=== PATIENT | female | born 1950 | race Caucasian/White ===

== ENCOUNTER → 2022-03-06 09:29 | Outpatient (CLI) | payer MEDICARE, BC, SELFPAY ==
--- NOTE | 2022-03-06 | DI.CT.S_ITS ---
PROCEDURE: CT SHOULDER RIGHT WITHOUT CON INDICATIONS: OSTEOARTHRITIS RIGHT SHOULDER TECHNIQUE: Noncontrast 1-1.5 mm thick sections acquired from the acromioclavicular joint to the inferior scapula using Lupron in shoulder protocol, with coronal and sagittal reformatting. COMPARISON: None. FINDINGS: Image quality: Excellent. Bones: Moderate glenohumeral joint osteoarthritic changes are seen with significant narrowing of the joint space, extensive subchondral sclerosis and inferior marginal osteophyte formation. Moderate acromioclavicular joint osteoarthritic changes also seen with joint space narrowing, subchondral sclerosis and downward osteophyte formation depressing the musculotendinous junction of supraspinatus. There is no shoulder fracture or dislocation. No suspicious intraosseous lesion. Visualized right upper ribs are intact. Soft tissues: There is no gross full-thickness rotator cuff tendon rupture. No significant muscle atrophy is seen. There is no significant joint effusion or calcified intra-articular loose bodies. No abnormal soft tissue calcifications. There is no axillary lymphadenopathy. Visualized right upper lung field is clear. Surgical clips are noted in right axilla. IMPRESSION: 1. Moderate glenohumeral joint osteoarthritis and moderate acromioclavicular joint osteoarthritis. No fracture or dislocation. No suspicious bony lesions. 2. No gross full-thickness rotator cuff tendon rupture. No significant muscle atrophy. No abnormal soft tissue calcifications. Surgical clips seen in right axilla. No axillary lymphadenopathy. Dictated by: Jaquan Tabor M.D. on 03/06/2022 at 11:42 Approved by: Jaqaun Tabor M.D. on 03/06/2022 at 11:45
== END ==
PROVIDERS: PCP Family Medicine; Referring Provider Orthopaedic Surgery; Visit Provider Orthopaedic Surgery
DX: M19.011 Primary osteoarthritis, right shoulder (principal)
CPT/HCPCS: 73200

== ENCOUNTER → 2022-05-01 11:24 | Outpatient (CLI) | payer MEDICARE, BC, SELFPAY ==
[2022-05-01 12:16] LABS: COVID19 -Nasal RAPID Negative (Negative)
== END ==
PROVIDERS: PCP Family Medicine; Referring Provider Orthopaedic Surgery; Visit Provider Orthopaedic Surgery
DX: Z20.822 Contact with and (suspected) exposure to COVID-19 (principal)
CPT/HCPCS: 87635; C9803

== ENCOUNTER 2022-05-04 13:30 | Observation (INO) | payer MEDICARE, BC, SELFPAY ==
[2022-04-15 09:55] VITALS: BMI 37.8
[2022-05-03] VITALS (16 sets, daily range): BP systolic 103–151; BP diastolic 55–74; PULSE 59–127; RESP 16–30; TEMP 35.5–36.7; O2SAT 91–98; BMI 37.8
--- NOTE | 2022-05-03 06:00 | DI.RAD.S_ITS ---
PROCEDURE: XR SHOULDER RT MIN 2V INDICATIONS: TSA TECHNIQUE: 2 views of the shoulder were acquired. COMPARISON: None. FINDINGS: Bones: Expected appearance of reverse shoulder arthroplasty. Acromioclavicular degenerative changes. Soft tissues: Axillary clips. Chest findings are separately reported. IMPRESSION: Expected appearance of right reverse shoulder arthroplasty. Dictated by: Chintan Talley M.D. on 05/03/2022 at 16:45 Approved by: Chintan Talley M.D. on 05/03/2022 at 16:46
[2022-05-03] MEDS: LACTATED RINGERS 1,000 ML 42 ML IV ×3 (12:30→16:09)
--- NOTE | 2022-05-03 13:00 | PM.PREOP ---
Pre-operative Note Interval Note History & Physical reviewed/Exam performed by Physician: Yes Changes to H&P: No
[2022-05-03] MEDS: CEFAZOLIN 2 GM/100 ML PREMIX 100 ML IV (13:50)
[2022-05-03] MEDS: TRANEXAMIC ACID 1,000 MG VIAL 2000 MG INJ (13:55)
[2022-05-03] MEDS: BUPIVACAINE 0.5% W/ EPI (PF) 30 ML VIAL INJ (14:37)
--- NOTE | 2022-05-03 14:43 | SUR.OPER ---
Beach chair with Skytron shoulder positioner. Lower body on padded OR bed. Head in foam padded head cradle, secured with straps. Non-operative arm secured <90 degrees abduction supported with gel pads, 2 Pillows under knees. Hells floated. Safety belt at thigh. Cloth tape over blanket over lower legs.
--- NOTE | 2022-05-03 16:09 | PM.OP.1 ---
Operative Date/Time/Diagnoses Date of procedure: 05/03/22 Time of procedure: 16:09 Pre-op diagnosis: Right shoulder rotator cuff arthropathy Post-op diagnosis: same Procedure & Clinicians Procedure: Right shoulder reverse total shoulder arthroplasty Same procedure as scheduled: Yes Indications: This is a 72-year-old female who has rotator cuff arthropathy. She has had symptoms for years, insidious onset. She has failed conservative therapy including injections, physical therapy, anti-inflammatories and activity modification. After extensive discussion in clinic, she wished to go forward with surgery. Risks and benefits were described including the risk of infection, bleeding, damage to internal structures including nerves. We also discussed the risk of failure of surgery and the need for revision surgery as well as the risk of anesthesia. She expressed understanding with these risks and wished to go forward with surgery. Surgeon: Crsitian Choe Grinder Operator Surface Tool: Graciela Alonso Anesthesia Type: General and Peripheral nerve block Operative Notes Findings: Rotator cuff arthropathy as seen on imaging and under direct visualization essentially non functional subscapularis Closure Type: primary Specimen(s): none sent Prosthetic devices, grafts, tissues, transplants, or devices: Tornier reverse total shoulder system: 25 mm full wedge perform base plate 36 mm standard glenosphere 36 mm (C) 7.5? +6 mm poly High offset (3.5 mm) +0 tray 3A (127.5?) standard PTC flex stem Estimated Blood Loss (mL): 50 Blood products transfused: none Procedure in detail: Operative note: Patient was seen in the preoperative holding unit. The correct right shoulder was identified and marked with my initials. Again we discussed the risks and benefits of surgery and they wished to go forward with surgery. The patient was brought back to the operating room and placed supine on the operating table. He underwent smooth endotracheal intubation. All prominences were padded and they were placed into the beach chair position. Intravenous antibiotics were given. The right shoulder was then prepped with the standard sterile preparation and draping. A time-out was then performed in my initials were again identified on the correct shoulder. 1 g of IV tranexamic acid was given. A standard deltopectoral incision was made. Skin flaps were made. The cephalic vein was identified and retracted laterally. This was protected throughout the remainder of the case. Sharp dissection was made along the deltoid, subacromial and subcoracoid space to release adhesions. The conjoined tendon was identified and the axillary nerve was palpated and continuous using the tug test. It was protected throughout the remainder of the case. A brown retractor was placed underneath the deltoid muscle and a darach retractor underneath the conjoint tendon. The anterior circumflex artery and associated veins on the lower border of the subscapularis were identified and tied off using 0-Vicryl. The biceps tendon was identified in the bicipital groove. This was released from its sheath, and taken from its origin on the glenoid and tied into the pectoralis tendon for a solid tenodesis. We then began a subscapularis peel. The subscapularis was tagged with an Ethibond suture. A 360 degree circumferential release of the subscapularis was performed with protection of the axillary nerve. The coracohumeral ligament was released at the base of the coracoid. The coracoacromial ligament was left intact. The shoulder was then dislocated. Osteophytes were removed using combination of rongeur and osteotome. The rotator cuff was noted to be insufficient. An intramedullary guide was used set at version of 30?. Using an oscillating saw a conservative humeral head cut was made. Impaction reamers were reamed up to a size 3 stem set at angle ?A (127.5?). A neck protector was placed. Attention was then turned to the glenoid. After retracting the humeral head posteriorly a circumferential release was performed of the capsule with protection of the axillary nerve. The labrum was then released starting at the biceps anchor and going around the rim a small amount of triceps was released from the inferior glenoid. A center guide pin was then placed using the guide, followed by Reamer. After adequate cartilage was removed the center drill hole was drilled and measured. The base plate was then implanted and screwed into place. The superior drill hole was drilled and filled in a nonlocking fashion, followed by the inferior and anterior holes in locking fashion. A 36 standard glenosphere was then selected and screwed into place onto the base plate. Turning back to the humerus, the humeral head was delivered and trialed with a C 7.5 degree + 6mm poly. The arm was taken through range of motion and this was felt to be stable. The trial was then removed and a dilute Betadine wash was then performed with 1 L of sterile saline. Before placing the final implant, drill holes were made in the bicipital groove for the subscapularis repair, and sutures were passed through the drill holes. The final stem with high offset tray was then impacted into the humerus. The shoulder was then reduced and again brought through range of motion and was felt to be stable. The interval was then closed using 0-Vicryl. The subscapularis was then repaired using a modified racking hitch with niece loupes. The deltopectoral interval was then closed with #2 Ethibond. The skin was closed with 2-0 PDS and marilyn followed by Aquacel dressing. Patient was awoken from anesthesia and brought back to the postoperative recovery unit without issue. They were placed into a sling. Assisting participation: This operation could not have been safely performed (without compromising the technical results or length of the procedure) without the assistance of a skilled orthopedic assistant. The orthopedic assistant was medically necessary for proper positioning, retraction and manipulation of instruments, proper exposure, graft prep, and manipulation of tissue. Complications: none Post-operative Condition: stable Disposition: PACU Plan for aftercare: Postoperative instructions: Sling to remain on for 6 weeks. No external rotation past neutral for 6 weeks. Okay for him to come off her shower. Okay to shower over the Aquacel dressing. If any water gets underneath the dressing, remove the dressing. First postoperative visit in 2 weeks.
--- NOTE | 2022-05-03 17:24 | DI.RAD.S_ITS ---
PROCEDURE: XR CHEST 1V INDICATIONS: difficult extubation, lethargic TECHNIQUE: One view of the chest was acquired. COMPARISON: None. FINDINGS: Surgical changes and devices: Right axillary clips. Right reverse shoulder arthroplasty. ET tube terminates in the distal esophagus. Lungs and pleura: Lung volumes are low. No pleural effusions. Thick linear opacity seen at the right lung base. Mediastinum: Heart size is at the upper limit of normal. Bones and chest wall: No suspicious bony lesions. Overlying soft tissues appear unremarkable. IMPRESSION: Thick linear opacity right lung base, possibly a combination of airspace disease and scar/atelectasis. Consider future imaging surveillance to assess for resolution and underlying neoplasm. ET tube terminates in the lower trachea. Lung volumes are low. Dictated by: Chintan Talley M.D. on 05/03/2022 at 16:44 Approved by: Chintan Talley M.D. on 05/03/2022 at 16:45
[2022-05-03 17:41] LABS: PCO2 ABG 92.5 mmHg (35-45); pH ABG 7.16 (7.35-7.45)
[2022-05-03 17:42] LABS: Fractionated Inspired Oxygen 100; HCO3 ABG 33 mmol/L (22-26); Oxygen Saturation ABG 100 % (95-100); PO2 ABG 357 mmHg (80-100); TCO2 ABG 36 mmol/L (21-31)
--- NOTE | 2022-05-03 19:09 | SUR.PHASEI ---
1800: Pt out of OR with JÚNIOR Brown, pt awake and alert, denying pain. When attached to bedside monitor pt was found to be in afib in the 120-130's HR. Bedside EKG performed and confirmed new on set afib. Hospitalist was consulted and dye house helper notified, pt cleared to go to bed 214 on telemetry monitoring. Pt sustained stable vital signs throughout her time in PACU and denied pain or dizziness. Pt transferred on tele monitor to the floor with two RN's in stable condition and passed off to bedside nurse.
--- NOTE | 2022-05-03 19:34 | DI.RAD.S_ITS ---
PROCEDURE: XR CHEST 1V INDICATIONS: pneumonia? TECHNIQUE: One view of the chest was acquired. COMPARISON: [facility], CR, XR CHEST 1V, 05/03/2022, 17:16. FINDINGS: Surgical changes and devices: None. Lungs and pleura: Lungs are unchanged with a curvilinear area of alveolar consolidation at the right lung base. This has not changed from earlier same day.. No pleural effusions or pneumothorax. Mediastinum: Mediastinal contours appear normal. Heart size is normal. Bones and chest wall: No suspicious bony lesions. Overlying soft tissues appear unremarkable. IMPRESSION: Presumed right lower lobe pneumonia pattern causing curvilinear radiodensity above the right hemidiaphragm. No change from earlier same day. Dictated by: Kyrie Palomino M.D. on 05/03/2022 at 21:52 Approved by: Kyrie Palomino M.D. on 05/03/2022 at 21:54
--- NOTE | 2022-05-03 20:29 | PM.CN ---
History of Present Illness Consult details Date Patient Seen: 05/03/22 Time Patient Seen: 18:30 Chief complaint: OPB Narrative: Ms. Yo is a 72W with PMH asthma, DM who presented for an elective shoulder repair. During surgery she was noted to have thick yellow secretions from the endotracheal tube. She was eventually extubated but was having respiratory difficulty, hypoxemia and placed on nasal cannula. She was tachycardic, EKG showed afib with RVR. She was given IV labetalol. Anesthesia team called requesting consult. When I see her she states prior to surgery she had no cough, shortness of breath, fever/chills. She has no history of cardiac disease, no history of afib. She currently denies feeling chest pain, palpitations, shortness of breath, dizziness, lightheadedness. Meds Home Medications and Allergies Home Medications Medication Instructions Recorded Confirmed Type acetaminophen 500 mg capsule 1,000 mg PO Q6H PRN Pain 04/15/22 05/03/22 History allopurinol 300 mg tablet 300 mg PO DAILY 04/15/22 05/03/22 History amlodipine 5 mg tablet 5 mg PO DAILY 04/15/22 05/03/22 History atorvastatin 40 mg tablet 40 mg PO DAILY 04/15/22 05/03/22 History dapagliflozin 5 mg tablet (Farxiga) 5 mg PO QAM 04/15/22 05/03/22 History esomeprazole magnesium 20 mg 20 mg PO DAILY 04/15/22 05/03/22 History tablet,delayed release loratadine 10 mg tablet 10 mg PO DAILY 04/15/22 05/03/22 History (Allerclear) tiotropium bromide 18 mcg capsule 1 cap inhalation DAILY 04/15/22 05/03/22 History with inhalation device (Spiriva with HandiHaler) Allergies Allergy/AdvReac Type Severity Reaction Status Date / Time Iodinated Contrast Media Allergy Severe Hives Verified 05/03/22 11:22 codeine AdvReac Mild Cough Verified 05/03/22 11:22 Review of Systems Review of Systems Narrative: 14 systems reviewed and negative aside from what is noted in HPI Exam Vital Signs (past 8 hours): - 05/03/22 17:56 05/03/22 18:01 05/03/22 18:06 Temperature 97.4 F L Pulse Rate 125 H 118 H 124 H Respiratory Rate 30 H 27 H 30 H Blood Pressure 118/62 121/74 103/56 L Pulse Oximetry 96 96 96 Oxygen Delivery Method Nasal Cannula Nasal Cannula Nasal Cannula Oxygen Flow Rate 2 2 2 05/03/22 18:11 05/03/22 18:16 05/03/22 18:21 Temperature Pulse Rate 113 H 127 H 122 H Respiratory Rate 21 20 20 Blood Pressure 130/74 105/72 108/73 Pulse Oximetry 92 94 93 Oxygen Delivery Method Nasal Cannula Nasal Cannula Nasal Cannula Oxygen Flow Rate 4 4 4 05/03/22 18:26 05/03/22 18:36 Temperature 96 F L Pulse Rate 123 H 127 H Respiratory Rate 21 16 Blood Pressure 106/67 115/61 Pulse Oximetry 93 94 Oxygen Delivery Method Nasal Cannula Nasal Cannula Oxygen Flow Rate 4 4 Oxygen Delivery Method Nasal Cannula Oxygen Flow Rate 4 Narrative Exam Narrative: GEN: no acute distress HEENT: moist mucous membranes, PERRL NECK: trachea midline, no JVD PULM: clear bilaterally, no wheezes, rhonchi, rales CV: tachycardic, irregular ABD: soft, nontender, nondistended, no organomegaly EXT: warm and well perfused, no edema NEURO: awake, alert, oriented, no focal deficits Objective Labs Labs: Laboratory Results - last 24 hr 05/03/22 17:10 ABG pH 7.16 L* ABG pCO2 92.5 H* ABG pO2 357 H* ABG HCO3 33 H ABG Total CO2 36 H ABG O2 Saturation 100 ABG Base Excess 4.0 H FiO2 100 PFSH Medical History Cade's esophagus Breast cancer, right (1996) Bronchial asthma COPD, mild COVID-19 virus infection (10/2021) Depression Diabetes Easy bruisability Gout Hiatal hernia HLD (hyperlipidemia) HTN (hypertension) LYSNEY on CPAP Osteoarthritis Surgical History History of bilateral tubal ligation History of bladder surgery Hx of bilateral mastectomy (2008) Hx of cholecystectomy Hx of tonsillectomy Social History household members: none Tobacco & Substance Use Smoking Status: Former smoker alcohol intake: former Assessment & Plan Assessment & Plan narrative: 1. Acute hypoxemic respiratory failure -possibly secondary to atelectasis, however sputum concerning for infection -repeat xray now that she is extubated -empiric abx for now with zosyn and azithromycin -repeat ABG -check blood cultures, sputum cultures -check cbc, cmp -check viral panel for respiratory infection 2. Atrial fibrillation with RVR -new diagnosis for patient -rate control with oral metoprolol for now, start at 25mg BID -discuss prior to dc about anticoagulation -check TSH -check ECHO CODE: Full Proxy: Miguel Ángel Whelan, friend I have utilized all available resources to reconcile the patient's home medications Time Spent With Patient Critical Care time: I spent a total of [] minutes of critical care time on this patient's care today; this time is exclusive of procedural time.
[2022-05-03] MEDS: AZITHROMYCIN 500 MG in DEXTROSE 5% IN WATER 250 ML 250 MG IV (20:59)
[2022-05-03] MEDS: DOCUSATE 100 MG CAPSULE PO (21:00)
[2022-05-03] MEDS: METOPROLOL IR 25 MG TABLET PO (21:00)
[2022-05-03] MEDS: IPRATROPIUM 0.5 MG/2.5 ML NEB INH (22:04)
[2022-05-03 22:12] LABS: Hematocrit 40.5 % (36-46); Hemoglobin 12.6 g/dL (12.0-16.0); Mean Corpuscular HGB Conc 31.2 % (30-36); Mean Corpuscular Hemoglobin 29.1 PG (26-34); Mean Corpuscular Volume 93.2 fL (80-100); Platelet Count 196 X10^3/uL (150-400); Red Blood Cell Count 4.34 X10^6/uL (4.0-5.2); Red Cell Distribution Width 13.9 % (11.6-14.8); White Blood Cell Count 14.7 X10^3/uL (4.5-11.0)
[2022-05-03 22:34] LABS: Alanine Aminotransferase 22 IU/L (<35); Albumin 3.7 g/dL (3.5-5.0); Albumin Globulin Ratio 1.1 (1.0-2.8); Alkaline Phosphatase 81 U/L (38-126); Aspartate Aminotransferase 31 IU/L (14-36); BUN Creatinine Ratio 19.2 (6-22); Bilirubin Total 0.5 mg/dL (0.2-1.3); Blood Urea Nitrogen 20 mg/dL (7-17); Calcium 8.8 mg/dL (8.4-10.2); Carbon Dioxide 28 mmol/L (22-32); Chloride 102 mmol/L (98-107); Estimated Glomerular Filt Rate 57 mL/min (>60); Globulin 3.5 g/dL (1.7-4.1); Glucose 186 mg/dL (80-110); HEMOLYSIS < 15 (0-50); Sodium 139 mmol/L (137-145); Total Protein 7.2 g/dL (6.3-8.2)
[2022-05-03] MEDS: PIPERACILLIN/TAZO 3.375 GM in SODIUM CHLORIDE 0.9% 100 ML IV (22:44)
[2022-05-03] MEDS: MORPHINE 2 MG/ML INJ 1.5 MG IV (22:57)
[2022-05-03 23:14] LABS: TSH w/ Reflex to FT4 0.73 uIU/mL (0.47-4.68)
[2022-05-04] VITALS (7 sets, daily range): BP systolic 117–179; BP diastolic 42–71; PULSE 54–61; RESP 15–18; TEMP 35.7–36.4; O2SAT 95–99; BMI 37.8
[2022-05-04] MEDS: MORPHINE 2 MG/ML INJ 1.5 MG IV ×2 (02:21→06:08)
[2022-05-04 04:22] LABS: Hematocrit 37.6 % (36-46); Hemoglobin 12.1 g/dL (12.0-16.0); Mean Corpuscular HGB Conc 32.2 % (30-36); Mean Corpuscular Hemoglobin 29.5 PG (26-34); Mean Corpuscular Volume 91.6 fL (80-100); Platelet Count 186 X10^3/uL (150-400); Red Cell Distribution Width 13.9 % (11.6-14.8); White Blood Cell Count 12.8 X10^3/uL (4.5-11.0)
[2022-05-04] MEDS: PIPERACILLIN/TAZO 3.375 GM in SODIUM CHLORIDE 0.9% 100 ML IV ×2 (04:26→11:00)
[2022-05-04] MEDS: PANTOPRAZOLE DR 40 MG TABLET PO (06:04)
--- NOTE | 2022-05-04 07:29 | P.PN_ITS ---
Subjective Subjective Date Patient Seen: 05/04/22 Time Patient Seen: 07:29 Interval history: Pt sitting up in bed, c/o pain, has no pain medication ordered other than IV morphine. She is also hungry. Pt had imaging and O2 sats consistent w/ pneumonia, being tx'd w/ antibiotics. Blood and sputum cultures pending. Also had new onset afib w/ RVR after surgery; echo pending. Exam Vital Signs (past 8 hours): - 05/04/22 00:54 05/04/22 05:00 Temperature 97.1 F L 97.6 F Pulse Rate 61 60 Respiratory Rate 16 18 Blood Pressure 139/56 L 179/69 H Pulse Oximetry 97 97 Oxygen Flow Rate 4 4 Fraction of Inspired Oxygen 36 SaO2/FiO2 Ratio 272 Oxygen Delivery Method Nasal Cannula Oxygen Flow Rate 4 Narrative Exam Narrative: 5/5 order takers supervisor strength, sensation to touch intact throughout RUE. Aquacel dressing CDI, there is some surrounding distal ecchymosis. Objective Labs Result Diagrams: 05/04/22 04:12 05/03/22 22:04 Labs: Laboratory Results - last 24 hr 05/03/22 05/03/22 05/03/22 17:10 22:04 22:04 WBC 14.7 H RBC 4.34 Hgb 12.6 Hct 40.5 MCV 93.2 MCH 29.1 MCHC 31.2 RDW 13.9 Plt Count 196 ABG pH 7.16 L* ABG pCO2 92.5 H* ABG pO2 357 H* ABG HCO3 33 H ABG Total CO2 36 H ABG O2 Saturation 100 ABG Base Excess 4.0 H FiO2 100 Sodium 139 Potassium 4.0 Chloride 102 Carbon Dioxide 28 BUN 20 H Creatinine 1.04 Estimated GFR 57 L BUN/Creatinine Ratio 19.2 Glucose 186 H Calcium 8.8 Total Bilirubin 0.5 AST 31 ALT 22 Alkaline Phosphatase 81 Total Protein 7.2 Albumin 3.7 Globulin 3.5 Albumin/Globulin Ratio 1.1 TSH 05/03/22 05/04/22 22:04 04:12 WBC 12.8 H RBC 4.10 Hgb 12.1 Hct 37.6 MCV 91.6 MCH 29.5 MCHC 32.2 RDW 13.9 Plt Count 186 ABG pH ABG pCO2 ABG pO2 ABG HCO3 ABG Total CO2 ABG O2 Saturation ABG Base Excess FiO2 Sodium Potassium Chloride Carbon Dioxide BUN Creatinine Estimated GFR BUN/Creatinine Ratio Glucose Calcium Total Bilirubin AST ALT Alkaline Phosphatase Total Protein Albumin Globulin Albumin/Globulin Ratio TSH 0.73 PFSH Medical History Cade's esophagus Breast cancer, right (1996) Bronchial asthma COPD, mild COVID-19 virus infection (10/2021) Depression Diabetes Easy bruisability Gout Hiatal hernia HLD (hyperlipidemia) HTN (hypertension) LYNSEY on CPAP Osteoarthritis Surgical History History of bilateral tubal ligation History of bladder surgery Hx of bilateral mastectomy (2008) Hx of cholecystectomy Hx of tonsillectomy Social History household members: none Smoking Status: Former smoker alcohol intake: former Assessment & Plan Post-op Assessment and plan (1) Status post total shoulder arthroplasty: Assessment and Plan narrative: PO diet ordered. Added hydrocodone/APAP and IBPN for pain. Will change IV morphine to IV hydromorphone q 3 hrs for breakthrough pain. Will order PT/OT for sling and movement training. Sling to remain on for 6 weeks.? No external rotation past neutral for 6 weeks.? Okay to remove sling to shower. Discussed w/ pt that discharge may be today but may be tomorrow given pending tests. (2) Atrial fibrillation with rapid ventricular response: Assessment and Plan narrative: TSH WNL. Echocardiogram pending. Pt on metoprolol for rate control. Appreciate hospitalist help with medical issues. (3) Pneumonia: Assessment and Plan narrative: Presumed RLL pneumonia based on most recent CXR, sputum and blood cultures pending. Postoperative Procedures: Procedures Operation Date: 05/03/22 12:45 Actual Procedure Side Surgeon p Total Shoulder Arthroplasty - Reverse Right Cristian Choe MD Postoperative day: 1
[2022-05-04] MEDS: AMLODIPINE 5 MG TABLET PO (08:37)
[2022-05-04] MEDS: allopurinoL 300 MG TABLET PO (08:38)
[2022-05-04] MEDS: DOCUSATE 100 MG CAPSULE PO ×2 (08:38→20:34)
[2022-05-04] MEDS: ATORVASTATIN 20 MG TABLET 40 MG PO (08:38)
[2022-05-04] MEDS: METOPROLOL IR 25 MG TABLET PO (08:38)
[2022-05-04] MEDS: LORATADINE 10 MG TABLET PO (08:38)
[2022-05-04] MEDS: HYDROCODONE/ACET 5/325 TABLET 1 TAB PO ×3 (08:38→21:08)
--- NOTE | 2022-05-04 09:00 | PT.IIE ---
Current Diagnoses Unspecified atrial fibrillation (05/03/22) Pneumonia, unspecified organism (05/03/22) Other specific arthropathies, not elsewhere classified, right shoulder (05/03/22) Presence of unspecified artificial shoulder joint (05/03/22) Surgery Performed Operation Date: 05/03/22 12:45 Actual Procedures p Total Shoulder Arthroplasty - Reverse (Right) - Cristian Choe MD Surgical History (Last Reviewed 05/03/22 @ 20:35 by Mason Hugo MD) History of bilateral tubal ligation History of bladder surgery Hx of bilateral mastectomy (2008) Hx of cholecystectomy Hx of tonsillectomy Medical History (Last Reviewed 05/03/22 @ 20:35 by Mason Hugo MD) Cade's esophagus Breast cancer, right (1996) Bronchial asthma COPD, mild COVID-19 virus infection (10/2021) Depression Diabetes Easy bruisability Gout Hiatal hernia HLD (hyperlipidemia) HTN (hypertension) LYNSEY on CPAP Osteoarthritis Physical Therapy Inpatient Evaluation/Re-Eval M1 PT/OT-IP Prior Functional Status Start: 05/04/22 11:36 Freq: NEEDED Status: Active Protocol: Document 05/04/22 09:00 AB (Rec: 05/04/22 11:54 AB [email or web address]) Medical Review Prior Functional Status Medical History Reviewed Yes Communication able to make needs known Mobility and Gait pt stated that she is independent with all mobilities and ambulation without AD but occasionally uses her SPC due to arthritis on BLE Social History Household Members none Living Arrangements House Number of Floors (Floors) One Floor Number of Stairs To Enter/Railing? 2 steps without rails to enter the house Home Environment Standard Height Toilet,Walk in Shower Home Equipment Straight Cane,Raised Toilet Seat Without Armrests,Hand Held Shower Additional Social History Comment pt stated that her neighbor/ friend will be able to stay with her for a few days to assist her pt plans to sleep on a recliner M2 PT-IP Current Condition Start: 05/04/22 11:36 Freq: NEEDED Status: Active Protocol: Document 05/04/22 09:00 AB (Rec: 05/04/22 11:54 AB [id number]) Physical Therapy Current Condition Current Condition Evaluation Date 05/04/22 Treatment Diagnosis s/p R TSA reverse; difficulty in walking Onset Date 05/03/22 M3 PT-IP Subjective Start: 05/04/22 11:36 Freq: NEEDED Status: Active Protocol: Document 05/04/22 09:00 AB (Rec: 05/04/22 11:54 AB [id number]) Subjective Physical Therapy Visit Type Type Initial Evaluation Visit Start Time 09:00 Visit Stop Time 09:55 Total Visit Minutes 55 Number of APPLICATION INTERNSHIP Visits 0 Physical Therapy Visit Comments Patient Comments agreeable to do PT Therapy Pain Assessment Pain When Pain Assessed At Rest Pain Present Pain Present Pain Reported Location Right Shoulder Intensity 7 Scale Used Numeric (0 - 10) Pain Management Techniques Apply Cold,Distraction, Modification of Treatment,Re- positioning,Timing of Activity with Medications M4 PT-IP Mobility and Gait Start: 05/04/22 11:36 Freq: NEEDED Status: Active Protocol: Document 05/04/22 09:00 AB (Rec: 05/04/22 11:54 [id number]) PT-Bed Mobility Assessment Supine to Sit Supine to Sit Maximum Assistance PT-Transfer Assessment Sit to and From Stand Sit to and from Stand Contact Guard Assistance,1 Person Assistance,Use of Upper Extremities Equipment Transfer Assistive Device Gait Belt Orthotic/Prosthetic Devices or Brace: Yes Transfers Transfer Destination Chair Transfer Technique Stand Step Pivot Transfer Ability Level of Assist Contact Guard Assistance,1 Person Assistance,Use of Upper Extremities Comments Mobility Comments educated pt on shoulder precautions, pendulum, elbow/ wrist/hand exercises. pt completed supine to sit max A and cues. pt plans to sleep on her recliner at home. completed sit to stand cGA and step transfer to chair CGA . assisted pt with sling adjustment. pt requested to use the toilet. completed sit to stand CGA and ambulated to the toilet using SPC CGA. able to complete toileting SBA . sit to stand from the toilet using grab bar CGA and ambulated towards the sink using SPC CGA. able to maintain standing balance SBA while completing handwashing. pt ambulated in room ~35 ft using SPC CGA. pt sat on chair. educated pt on sling management. completed elbow/ hand/wrist exercises. pt completed up/down step stool using SPC CGA. positioned pt on the chair. call light and table placed within reach. caregiver training set up this afternoon at 1pm. Gait Assessment Gait Gait Assistance Required: Contact Guard Assist Distance (Feet) 35 Able to Maintain Weight Bearing Status Yes During Gait Assistive Devices Assistive Device Gait Belt,Straight Cane Orthotic/Prosthetic Devices or Brace: Yes Gait Deviations General Gait Pattern Antalgic,Step-to Gait Factors Limiting Gait Function Factors Limiting Gait Function Decreased Activity Tolerance, Decreased Strength,Limited Range of Motion,Pain,Poor Balance,Poor Safety Awareness Stair Climbing Assessment Evaluation Level of Assist On Stairs Contact Guard Assistance Devices Stair Climbing Assistive Devices Straight Cane Technique/Endurance Stair Climbing Direction Ascend and Descend Stair Climbing Technique Step to Step Number of Steps Climbed 1 Query Text: Stair Climbing Set # Repetitions (reps) 2 PT-Balance Assessment Sitting Balance and Reactions Static Sitting Balance Ability Normal Dynamic Sitting Balance Ability Normal Standing Balance and Reactions Static Standing Balance Ability Good Dynamic Standing Balance Ability Fair Device Used SPC M5 PT-IP Objective Assessments Start: 05/04/22 11:36 Freq: NEEDED Status: Active Protocol: Document 05/04/22 09:00 AB (Rec: 05/04/22 11:54 AB [email or web address]) Orientation Orientation/Cognition Level of Alertness Alert Orientation Name,Place,Situation Language Function Ability No Deficits Noted Safety Awareness Decreased Safety Awareness Memory Description No Deficits Noted Gross Range of Motion Lower Extremity ROM Assessment Within Functional Limits Strength Lower Extremity Strength Hip 4-/5 Knee 4-/5 Muscle Tone Muscle Tone WNL Yes M6 PT-IP Treatment Start: 05/04/22 11:36 Freq: NEEDED Status: Active Protocol: Document 05/04/22 09:00 AB (Rec: 05/04/22 11:54 AB [email or web address]) Physical Therapy Treatment Education Education Provided Precautions,Weight Bearing Status,Post-Op Packet,Safety M7 PT-IP Assessment and Plan Start: 05/04/22 11:36 Freq: NEEDED Status: Active Protocol: Document 05/04/22 09:00 AB (Rec: 05/04/22 11:54 AB [email or web address]) PT Summary Assessment and Plan Potential Rehabilitation Potential Fair Status of Condition at Evaluation Stable Summary Impairments Pain,ROM,Strength,Balance, Coordination,Sensation,Tone, Cognition,Bed Mobility, Transfers,Gait,Activity Tolerance Assessment Summary pt requiring CGA with mobility using SPC. caregiver training set up this afternoon at 1pm. pt plans to go home and her neighbor/friend will assist her at home. will continue to assess progress. Goals Bed Mobility Goal Independent Transfer Goal Independent,Cane Gait Goal Independent,Cane Gait Distance 100 Other Goals improve transfers, ambulation without AD 150 ft independent up/down 2 steps without rails using SPC I Days to Meet Goals 5 Frequency of Treatment Frequency Of Treatment Twice a Day Treatment Plan Physical Therapy Treatment Plan Bed Mobility Training,Transfer Training,Gait Training, Therapeutic Exercise,Balance Retraining,Post Op Education, Discharge Planning,Hot or Cold Pack,Neuromuscular Re-ed, Coordination Retraining,Manual Therapy Precautions Shoulder Precautions Sling,PROM,Internal Rotation to Body,No External Rotation, No Abduction,Forward Flexion to 90 degrees,Pendulums Weight Bearing Status Weight Bearing Status Non-Weight Bearing Allowed Weight Bearing Amount (enter % RUE NWB or #) (%) Recommendations To Nursing Amount of Assist Needed 1 Person Assist Discharge Recommendations PT Discharge Recommendations Home with Assistance, Outpatient PT Transportation Needs at Discharge Private Vehicle
[2022-05-04 09:17] LABS: Influenza A - CEPHEID Flu A NEGATIVE (NEGATIVE); Influenza B - CEPHEID Flu B NEGATIVE (NEGATIVE); Respiratory Syncytial Virus Negative (Negative)
[2022-05-04 09:41] LABS: COVID-19 CEPHEID 4-PLEX PCR Negative (Negative)
--- NOTE | 2022-05-04 10:34 | CM.DANOTE ---
DCP Assessment: Payor confirmed: Medicare & BCBS PCP confirmed: Adilene Davis MD Pt is a 72 y.o. F who presented to the hospital for a scheduled R total shoulder repair surgery. Pt was found to have pneumonia. Pt brought up to the floor for further management and evaluation of surgical procedure and new onset of illness. DCP met with pt this morning to discuss discharge needs. Pt sitting up in the chair watching TV. DCP introduced self and role. Pt lives alone in a single level house in [place]. Pt is independent at baseline. Pt uses a cane occasionally. Pt still drive POV. Pt states that she is going to be staying with a friend once she is discharged from the hospital and the friend will be picking her up from the hospital. Pt denies any resources at this time. Pt states that she is hoping to get to go home soon. Pt results came back and she is negative for COVID, flu, and RSV. Pt whiteboard updated and instructed to call with any questions. Pt thankful for discussion. P: Once medically stable for discharge, pt to discharge home via friend POV. DCP available if needs arise. Jerica Molina RN/TOYA Discharge Planning/Care Management CM Discharge Assessment Start: 05/04/22 10:33 Freq: Status: Active Protocol: Document 05/04/22 10:33 DANIEL (Rec: 05/04/22 10:34 DANIEL [id number]) Discharge Planning Assessment Assigned Cornice Maker Jerica Molina RN/TOYA Advance Directives? No Advance Directives on File No History Provided By Patient Prior Living Arrangements House Household Members none Type of transporation used prior to Drives own vehicle admit Independent with ADL's Yes Is patient alert and oriented? Yes Caregiver for Another No DME Already Rented / Owned Cane Discharge Plan Home Transportation Arrangement Friend POV Referrals Initiated None needed Whiteboard Updated in Patient Room with Yes name and ext. # of Cornice Maker Comment Instructed to call Review Status In Process Please Provide Date Initial DC 05/04/22 Assessment Was Performed Next Review Type Continued Stay Review Pre-Anesthesia Assessment Start: 04/15/22 09:55 Freq: Status: Active Protocol: Document 04/15/22 09:55 CAB (Rec: 04/15/22 10:45 CAB [id number]) Pre-Anesthesia Assessment Preferred Name Norma Patient Information Reviewed Via Phone Assessment Assessment Completed With Patient Diagnostic Results BMP/CMP,CBC,EKG Comment Outside labs/ECG scanned, COVID screen @ [facility] 05/01/22 Primary Care Provider Imani Seen Specialist in Last 12 Months Yes Specialist Seen Orthopedist Primary Language Czech Round Boner Required No Height 154.94 cm Weight 90.718 kg Body Mass Index (BMI) 37.8 Hearing Ability Normal Visual Assist Glasses Dentition Type Full- Upper & Lower Barriers to Learning None Hx Anesthesia Reactions No Hx Family Anesthesia Reaction No Hx Malignant Hyperthermia No Hx Blood Transfusions No Anesthesia Review Requested No alcohol intake former Smoking Status Former smoker how long ago did patient quit smoking Quit approx 7 years ago Substance Use Type does not use Pain Present Pain Reported Musculoskeletal Symptoms Joint Pain,Limited Range of Motion History of Falling (Recent or History of No ) Patient is completely paralyzed or No completely immobile Prosthesis or Orthotic Device Cane,Front Wheel Walker Mental Status Oriented to own ability Is patient on oxygen? No Does patient have LOZOYA/SOB Yes: Hx COPD, asthma Hx Sleep Apnea Yes CPAP/BIPAP use prescribed used intermittently Will Bring CPAP/BIPAP DOS Yes Currently Taking a Beta Evita No Can You Climb a Flight of Stairs Without No SOB Hx Chest Pain No Hx SOB Yes: Hx COPD, asthma Hx Syncope or Dizziness No Anti-Coagulant Therapy No Has a Radar Systems Engineer No Cardiac Testing No Hx Pacemaker/ICD No Pacemaker Rep Required? No Cardiac Clearance Received Not Applicable Diet Type At Home Regular Dysphagia No Gastrointestinal Symptoms Constipation Urinary Catheter Present No Hx Urinary Self Catheterization No Diabetes Yes HgbA1C 6.4 Date 01/21/22 Patient No Lactating No Hx Drug Resistant Organism No Presence of External or Internal Medical Yes: CPAP Devices Have you had any close contact with No someone diagnosed with COVID-19? Received a COVID vaccine? Yes Received all doses? Yes Marital Status / Lives With none Current Living Arrangements Apartment/Condo Number of Floors (Floors) One Floor Support System Child/Children Does the Patient Have Assistance After Yes: Son will fly in and stay Surgery to assist with care @ [facility] Patient Discharge Plan Description Return Home Comment Pt advised possible same day surgery per surgeon Feels Safe in Current Environment Yes Been Physically Hurt or Threatened By a No Person in Current Environment Do you have thoughts of harming yourself None or others? Are you currently considering suicide? No Do you have a plan to hurt yourself or No Plan others? Do You Have Any Spiritual Beliefs That No May Affect Your HC Choices? Do You Have Any Cultural Practices That No May Affect Your HC Choices? Comment Zoroastrian Who Can We Speak to About Patient's Care Family, friends Identifying Code for Release of Patient Declines to issue Information Health Care Proxy/Next of Kin Byron (son) Health Care Proxy Emergency Contact Name Gina (friend) Emergency Contact Advance Directives? No Power of Carpenter Repair No PAC Instructions Bring CPAP/BIPAP,Diabetes instructions,Do not shave/clip surgical site,Durable medical equipment,Medications to take /avoid,Nasal antibiotic,No ETOH/petroleum product on skin DOS,NPO,Pre-surgical wash, Sensory aids,Sturdy shoes/ comfortable clothes,Do not bring valuables and remove jewelry
--- NOTE | 2022-05-04 13:00 | PT.IPTN ---
Current Diagnoses Unspecified atrial fibrillation (05/03/22) Pneumonia, unspecified organism (05/03/22) Other specific arthropathies, not elsewhere classified, right shoulder (05/03/22) Presence of unspecified artificial shoulder joint (05/03/22) Surgery Performed Operation Date: 05/03/22 12:45 Actual Procedures p Total Shoulder Arthroplasty - Reverse (Right) - Cristian Choe MD Physical Therapy Treatment Note M2 PT-IP Current Condition Start: 05/04/22 11:36 Freq: NEEDED Status: Active Protocol: Document 05/04/22 09:00 AB (Rec: 05/04/22 11:54 AB [email or web address]) Physical Therapy Current Condition Current Condition Evaluation Date 05/04/22 Treatment Diagnosis s/p R TSA reverse; difficulty in walking Onset Date 05/03/22 M3 PT-IP Subjective Start: 05/04/22 11:36 Freq: NEEDED Status: Active Protocol: Document 05/04/22 13:00 AB (Rec: 05/04/22 14:07 AB [email or web address]) Subjective Physical Therapy Visit Type Type Treatment Note Visit Start Time 13:00 Visit Stop Time 13:25 Total Visit Minutes 25 Number of HERD TESTER Visits 0 Physical Therapy Visit Comments Patient Comments agreeable to do PT Therapy Pain Assessment Pain When Pain Assessed At Rest Pain Present Pain Present Pain Reported Location Right Shoulder Scale Used pain scale not stated M4 PT-IP Mobility and Gait Start: 05/04/22 11:36 Freq: NEEDED Status: Active Protocol: Document 05/04/22 13:00 AB (Rec: 05/04/22 14:07 AB [email or web address]) PT-Transfer Assessment Sit to and From Stand Sit to and from Stand Standby Assistance,Use of Upper Extremities Equipment Transfer Assistive Device Gait Belt,Tripod Cane/Hurry Cane Orthotic/Prosthetic Devices or Brace: No Comments Mobility Comments pt's friend/neighbor in room for caregiver training. pt now stated that she will go to her friend's house upon d/c. friend stated that they have a ramp to enter the house and have a recliner that pt can sleep on. friend also brought in pt's hurrycane. educated caregiver on pt's shoulder precautions and exercises on UE and dressing techniques. educated on sling managment. caregiver was able to don/doff sling for pt. pt demonstrated sit to stand and ambulation in room using Poxelcane SBA ~ 30 ft. educated caregiver on how to assist pt if needed. pt sat back on chair. pt and caregiver without further concerns. Gait Assessment Gait Gait Assistance Required: Standby Assistance Distance (Feet) 30 Able to Maintain Weight Bearing Status Yes During Gait Assistive Devices Assistive Device Gait Belt,Tripod Cane/Hurry Cane Orthotic/Prosthetic Devices or Brace: Yes Gait Deviations General Gait Pattern Antalgic Factors Limiting Gait Function Factors Limiting Gait Function Decreased Activity Tolerance, Decreased Strength,Limited Range of Motion,Pain,Poor Balance,Poor Safety Awareness M5 PT-IP Objective Assessments Start: 05/04/22 11:36 Freq: NEEDED Status: Active Protocol: Document 05/04/22 09:00 AB (Rec: 05/04/22 11:54 AB [email or web address]) Orientation Orientation/Cognition Level of Alertness Alert Orientation Name,Place,Situation Language Function Ability No Deficits Noted Safety Awareness Decreased Safety Awareness Memory Description No Deficits Noted Gross Range of Motion Lower Extremity ROM Assessment Within Functional Limits Strength Lower Extremity Strength Hip 4-/5 Knee 4-/5 Muscle Tone Muscle Tone WNL Yes M6 PT-IP Treatment Start: 05/04/22 11:36 Freq: NEEDED Status: Active Protocol: Document 05/04/22 13:00 AB (Rec: 05/04/22 14:07 AB [email or web address]) Physical Therapy Treatment Education Education Provided Precautions,Weight Bearing Status,Safety M7 PT-IP Assessment and Plan Start: 05/04/22 11:36 Freq: NEEDED Status: Active Protocol: Document 05/04/22 13:00 AB (Rec: 05/04/22 14:07 AB [email or web address]) PT Summary Assessment and Plan Potential Rehabilitation Potential Good Summary Impairments Pain,ROM,Strength,Balance, Coordination,Sensation,Tone, Cognition,Bed Mobility, Transfers,Gait,Activity Tolerance Progress Towards Goals Progressing Toward Goals Assessment Summary caregiver training completed and caregiver able to assist pt. pt plans to go home to her friend's house. pt may go home when medically stable. Goals Bed Mobility Goal Independent Transfer Goal Independent,Cane Gait Goal Independent,Cane Gait Distance 100 Other Goals improve transfers, ambulation without AD 150 ft independent up/down 2 steps without rails using SPC I Days to Meet Goals 5 Frequency of Treatment Frequency Of Treatment Twice a Day Treatment Plan Physical Therapy Treatment Plan Bed Mobility Training,Transfer Training,Gait Training, Therapeutic Exercise,Balance Retraining,Post Op Education, Discharge Planning,Hot or Cold Pack,Neuromuscular Re-ed, Coordination Retraining,Manual Therapy Precautions Shoulder Precautions Sling,PROM,Internal Rotation to Body,No External Rotation, No Abduction,Forward Flexion to 90 degrees,Pendulums Weight Bearing Status Weight Bearing Status Non-Weight Bearing Allowed Weight Bearing Amount (enter % RUE NWB or #) (%) Recommendations To Nursing Amount of Assist Needed 1 Person Assist Discharge Recommendations PT Discharge Recommendations Home with Assistance, Outpatient PT Transportation Needs at Discharge Private Vehicle
[2022-05-04] MEDS: ALBUTEROL/IPRATROPIUM 3 ML AMPUL INH (15:09)
[2022-05-04] MEDS: ENOXAPARIN 40 MG/0.4 ML SYRINGE SUBCUT (17:24)
--- NOTE | 2022-05-04 19:34 | PM.PN.1 ---
Subjective Subjective Date Patient Seen: 05/04/22 Time Patient Seen: 08:00 Interval history: Her breathing is improved today. She still has chest tightness though. Exam Vital Signs (past 8 hours): - 05/04/22 13:00 05/04/22 16:00 Temperature 97.3 F L 96.5 F L Pulse Rate 54 L 57 L Respiratory Rate 16 15 Blood Pressure 128/58 L 117/42 L Pulse Oximetry 95 95 Oxygen Flow Rate 0 0 Fraction of Inspired Oxygen 36 SaO2/FiO2 Ratio 272 Oxygen Delivery Method Nasal Cannula Oxygen Flow Rate 0 Narrative Exam Narrative: GEN: no acute distress PULM: clear bilaterally, no wheezes, rhonchi, rales CV: regular rate and rhythm ABD: soft, nontender, nondistended, no organomegaly EXT: warm and well perfused, no edema NEURO: awake, alert, oriented, no focal deficits Objective Labs Result Diagrams: 05/04/22 04:12 05/03/22 22:04 Labs: Laboratory Results - last 24 hr 05/03/22 05/03/22 05/03/22 22:04 22:04 22:04 WBC 14.7 H RBC 4.34 Hgb 12.6 Hct 40.5 MCV 93.2 MCH 29.1 MCHC 31.2 RDW 13.9 Plt Count 196 Sodium 139 Potassium 4.0 Chloride 102 Carbon Dioxide 28 BUN 20 H Creatinine 1.04 Estimated GFR 57 L BUN/Creatinine Ratio 19.2 Glucose 186 H Calcium 8.8 Total Bilirubin 0.5 AST 31 ALT 22 Alkaline Phosphatase 81 Total Protein 7.2 Albumin 3.7 Globulin 3.5 Albumin/Globulin Ratio 1.1 TSH 0.73 SARS-CoV-2 (PCR) Influenza A (RT-PCR) Influenza B (RT-PCR) RSV (PCR) 05/04/22 05/04/22 04:12 08:20 WBC 12.8 H RBC 4.10 Hgb 12.1 Hct 37.6 MCV 91.6 MCH 29.5 MCHC 32.2 RDW 13.9 Plt Count 186 Sodium Potassium Chloride Carbon Dioxide BUN Creatinine Estimated GFR BUN/Creatinine Ratio Glucose Calcium Total Bilirubin AST ALT Alkaline Phosphatase Total Protein Albumin Globulin Albumin/Globulin Ratio TSH SARS-CoV-2 (PCR) Negative Influenza A (RT-PCR) Flu a negative Influenza B (RT-PCR) Flu b negative RSV (PCR) Negative [facility] Medical History Cade's esophagus Breast cancer, right (1996) Bronchial asthma COPD, mild COVID-19 virus infection (10/2021) Depression Diabetes Easy bruisability Gout Hiatal hernia HLD (hyperlipidemia) HTN (hypertension) LYNSEY on CPAP Osteoarthritis Surgical History History of bilateral tubal ligation History of bladder surgery Hx of bilateral mastectomy (2008) Hx of cholecystectomy Hx of tonsillectomy Social History household members: none Smoking Status: Former smoker alcohol intake: former Assessment & Plan Assessment & Plan narrative: 1. Acute hypoxemic respiratory failure, improving -possibly secondary to atelectasis, however sputum concerning for infection -repeat xray now that she is extubated showed pneumonia -empiric abx for now with zosyn and azithromycin -check blood cultures, sputum cultures -check cbc, cmp -check viral panel for respiratory infection which was negative 2. Atrial fibrillation with RVR, resolved -new diagnosis for patient -rate control with oral metoprolol for now, start at 12.5mg BID -discuss prior to dc about anticoagulation -dc ECHO If breathing improved will plan dc on 05/05. Time Spent With Patient Critical Care time: I spent a total of [] minutes of critical care time on this patient's care today; this time is exclusive of procedural time.
[2022-05-04] MEDS: AZITHROMYCIN 500 MG in DEXTROSE 5% IN WATER 250 ML 250 MG IV (20:32)
[2022-05-04] MEDS: METOPROLOL IR 25 MG TABLET 12.5 MG PO (20:36)
[2022-05-04] MEDS: IPRATROPIUM 0.5 MG/2.5 ML NEB INH (21:24)
[2022-05-05 00:48] VITALS: BP 121/43; PULSE 60; RESP 18; TEMP 36.5; O2SAT 95
[2022-05-05] MEDS: PANTOPRAZOLE DR 40 MG TABLET PO (05:20)
[2022-05-05 06:31] LABS: Hematocrit 34.9 % (36-46); Hemoglobin 11.1 g/dL (12.0-16.0); Mean Corpuscular HGB Conc 31.8 % (30-36); Mean Corpuscular Hemoglobin 29.3 PG (26-34); Mean Corpuscular Volume 92.4 fL (80-100); Platelet Count 181 X10^3/uL (150-400); Red Blood Cell Count 3.78 X10^6/uL (4.0-5.2); Red Cell Distribution Width 14.2 % (11.6-14.8); White Blood Cell Count 12.8 X10^3/uL (4.5-11.0)
[2022-05-05 06:42] LABS: Alanine Aminotransferase 20 IU/L (<35); Albumin 3.3 g/dL (3.5-5.0); Albumin Globulin Ratio 0.9 (1.0-2.8); Alkaline Phosphatase 67 U/L (38-126); Aspartate Aminotransferase 39 IU/L (14-36); BUN Creatinine Ratio 23.5 (6-22); Bilirubin Total 0.5 mg/dL (0.2-1.3); Blood Urea Nitrogen 28 mg/dL (7-17); Calcium 8.7 mg/dL (8.4-10.2); Carbon Dioxide 28 mmol/L (22-32); Chloride 100 mmol/L (98-107); Estimated Glomerular Filt Rate 48 mL/min (>60); Globulin 3.5 g/dL (1.7-4.1); Glucose 125 mg/dL (80-110); HEMOLYSIS < 15 (0-50); Sodium 136 mmol/L (137-145); Total Protein 6.8 g/dL (6.3-8.2)
--- NOTE | 2022-05-05 07:57 | PM.PNPO.1 ---
Subjective Subjective Date Patient Seen: 05/05/22 Time Patient Seen: 07:59 Interval history: Pt sitting up in bed, says arm feels terrible, but pain controlled w/ hydrocodone and ice. Spoke with Dr Hugo, who feels pt can be discharged later today with oral medications for pneumonia and a fib. Exam Vital Signs (past 8 hours): - 05/05/22 00:48 Temperature 97.7 F Pulse Rate 60 Respiratory Rate 18 Blood Pressure 121/43 L Pulse Oximetry 95 Oxygen Flow Rate 0 Fraction of Inspired Oxygen 36 SaO2/FiO2 Ratio 272 Oxygen Delivery Method Room Air Oxygen Flow Rate 0 Narrative Exam Narrative: Aquacel dressing CDI, sling in place. 5/5 planning director strength and hand intrinsics, sensation to touch intact throughout RUE. Objective Labs Result Diagrams: 05/05/22 05:38 05/05/22 05:38 Labs: Laboratory Results - last 24 hr 05/04/22 05/05/22 05/05/22 08:20 05:38 05:38 WBC 12.8 H RBC 3.78 L Hgb 11.1 L Hct 34.9 L MCV 92.4 MCH 29.3 MCHC 31.8 RDW 14.2 Plt Count 181 Sodium 136 L Potassium 4.0 Chloride 100 Carbon Dioxide 28 BUN 28 H Creatinine 1.19 H Estimated GFR 48 L BUN/Creatinine Ratio 23.5 H Glucose 125 H Calcium 8.7 Total Bilirubin 0.5 AST 39 H ALT 20 Alkaline Phosphatase 67 Total Protein 6.8 Albumin 3.3 L Globulin 3.5 Albumin/Globulin Ratio 0.9 L SARS-CoV-2 (PCR) Negative Influenza A (RT-PCR) Flu a negative Influenza B (RT-PCR) Flu b negative RSV (PCR) Negative [facility] Medical History Cade's esophagus Breast cancer, right (1996) Bronchial asthma COPD, mild COVID-19 virus infection (10/2021) Depression Diabetes Easy bruisability Gout Hiatal hernia HLD (hyperlipidemia) HTN (hypertension) LYNSEY on CPAP Osteoarthritis Surgical History History of bilateral tubal ligation History of bladder surgery Hx of bilateral mastectomy (2008) Hx of cholecystectomy Hx of tonsillectomy Social History household members: none Smoking Status: Former smoker alcohol intake: former Assessment & Plan Post-op Assessment and plan (1) Status post total shoulder arthroplasty: Assessment and Plan narrative: Hydrocodone/APAP and IBPN for pain.?Sling to remain on for 6 weeks.? No external rotation past neutral for 6 weeks.? Okay to remove sling to shower.??F/u w/ Dr Choe as scheduled in 2 weeks. (2) Atrial fibrillation with rapid ventricular response: Assessment and Plan narrative: D/c meds per hospitalist. (3) Pneumonia: Assessment and Plan narrative: D/c meds per hospitalist. Postoperative Procedures: Procedures Operation Date: 05/03/22 12:45 Actual Procedure Side Surgeon p Total Shoulder Arthroplasty - Reverse Right Cristian Choe MD Postoperative day: 2
[2022-05-05 08:00] VITALS: BP 151/58; PULSE 65; RESP 17; TEMP 36.2; O2SAT 93
--- NOTE | 2022-05-05 09:37 | PT.IPTN ---
Current Diagnoses Unspecified atrial fibrillation (05/03/22) Pneumonia, unspecified organism (05/03/22) Other specific arthropathies, not elsewhere classified, right shoulder (05/03/22) Presence of unspecified artificial shoulder joint (05/03/22) Surgery Performed Operation Date: 05/03/22 12:45 Actual Procedures p Total Shoulder Arthroplasty - Reverse (Right) - Cristian Choe MD Physical Therapy Treatment Note M2 PT-IP Current Condition Start: 05/04/22 11:36 Freq: NEEDED Status: Active Protocol: Document 05/04/22 09:00 AB (Rec: 05/04/22 11:54 AB [id number]) Physical Therapy Current Condition Current Condition Evaluation Date 05/04/22 Treatment Diagnosis s/p R TSA reverse; difficulty in walking Onset Date 05/03/22 M3 PT-IP Subjective Start: 05/04/22 11:36 Freq: NEEDED Status: Active Protocol: Document 05/05/22 09:37 NBM (Rec: 05/05/22 11:34 ELIO [id number]) Subjective Physical Therapy Visit Type Type Treatment Note Visit Start Time 09:25 Visit Stop Time 09:37 Total Visit Minutes 12 Number of [employer] Visits 1 Physical Therapy Visit Comments Patient Comments agreeable to do PT Therapy Pain Assessment Pain When Pain Assessed At Rest Pain Present Pain Present Pain Reported Location Right Shoulder Scale Used pain scale not stated Pain Management Techniques Apply Cold,Distraction, Modification of Treatment,Re- positioning,Timing of Activity with Medications M4 PT-IP Mobility and Gait Start: 05/04/22 11:36 Freq: NEEDED Status: Active Protocol: Document 05/05/22 09:37 NBM (Rec: 05/05/22 11:34 ELIO [id number]) PT-Transfer Assessment Sit to and From Stand Sit to and from Stand Standby Assistance,Use of Upper Extremities Equipment Transfer Assistive Device Gait Belt,Tripod Cane/Hurry Cane Orthotic/Prosthetic Devices or Brace: No Transfers Transfer Destination Chair Transfer Technique Stand Step Pivot Transfer Ability Level of Assist Standby Assistance,Contact Guard Assistance,Use of Upper Extremities Comments Mobility Comments Pt in recliner upon arrival w/ ice to R shoulder, R arm in sling, and agreeable to PT. Reviewed shoulder precautions and pt performed wrist and hand ROM, and elbow supination /pronation in sling. Discussed ice for pain management. Pt SBA scooting EOC and sit>stand w/ Hurrycane in LUE. Pt ambulates SBA w/ Hurrycane in LUE ~165ft x 2 w/ standing rest break x 3 min. Pt returned to recliner with appropriate hand placement for stand>sit SBA. Pt left in recliner w/ call light and all needs within reach. Gait Assessment Gait Gait Assistance Required: Standby Assistance Distance (Feet) 330 Able to Maintain Weight Bearing Status Yes During Gait Assistive Devices Assistive Device Gait Belt,Tripod Cane/Hurry Cane Orthotic/Prosthetic Devices or Brace: Yes Gait Deviations General Gait Pattern Antalgic Factors Limiting Gait Function Factors Limiting Gait Function Decreased Activity Tolerance, Decreased Strength,Limited Range of Motion,Pain,Poor Balance,Poor Safety Awareness Comments Gait Comments Pt ambulates w/ excessive L hip external rotation and discussed neutral foot positioning (toes forward) to reduce risk of catching foot on cane in LUE. PT-Balance Assessment Sitting Balance and Reactions Static Sitting Balance Ability Normal Dynamic Sitting Balance Ability Normal Standing Balance and Reactions Static Standing Balance Ability Good Dynamic Standing Balance Ability Fair Device Used SPC M5 PT-IP Objective Assessments Start: 05/04/22 11:36 Freq: NEEDED Status: Active Protocol: Document 05/04/22 09:00 AB (Rec: 05/04/22 11:54 AB [id number]) Orientation Orientation/Cognition Level of Alertness Alert Orientation Name,Place,Situation Language Function Ability No Deficits Noted Safety Awareness Decreased Safety Awareness Memory Description No Deficits Noted Gross Range of Motion Lower Extremity ROM Assessment Within Functional Limits Strength Lower Extremity Strength Hip 4-/5 Knee 4-/5 Muscle Tone Muscle Tone WNL Yes M6 PT-IP Treatment Start: 05/04/22 11:36 Freq: NEEDED Status: Active Protocol: Document 05/05/22 09:37 NBM (Rec: 05/05/22 11:34 [facility] [id number]) Physical Therapy Treatment Exercises Exercises Wrist ROM,Hand ROM Education Education Provided Precautions,Weight Bearing Status,Safety Other Treatments Other Treatment Performed Elbow supination/pronation (in sling) M7 PT-IP Assessment and Plan Start: 05/04/22 11:36 Freq: NEEDED Status: Active Protocol: Document 05/05/22 09:37 NBM (Rec: 05/05/22 11:34 [facility] [id number]) PT Summary Assessment and Plan Potential Rehabilitation Potential Good Summary Impairments Pain,ROM,Strength,Balance, Coordination,Sensation,Tone, Cognition,Bed Mobility, Transfers,Gait,Activity Tolerance Progress Towards Goals Progressing Toward Goals Assessment Summary Pt demonstrates good understanding of shoulder precautions and appropriate exercises, as well as increased activity tolerance ambulating SBA 2x165 ft w/ Hurrycane this treatment session w/ one standing rest break x 3 min. Pt plans to go home to her friend's house today. Pt may go home when medically stable. Goals Bed Mobility Goal Independent Transfer Goal Independent,Cane Gait Goal Independent,Cane Gait Distance 100 Other Goals improve transfers, ambulation without AD 150 ft independent up/down 2 steps without rails using SPC I Days to Meet Goals 5 Frequency of Treatment Frequency Of Treatment Twice a Day Treatment Plan Physical Therapy Treatment Plan Bed Mobility Training,Transfer Training,Gait Training, Therapeutic Exercise,Balance Retraining,Post Op Education, Discharge Planning,Hot or Cold Pack,Neuromuscular Re-ed, Coordination Retraining,Manual Therapy Precautions Shoulder Precautions Sling,PROM,Internal Rotation to Body,No External Rotation, No Abduction,Forward Flexion to 90 degrees,Pendulums Weight Bearing Status Weight Bearing Status Non-Weight Bearing Allowed Weight Bearing Amount (enter % RUE NWB or #) (%) Recommendations To Nursing Amount of Assist Needed 1 Person Assist Discharge Recommendations PT Discharge Recommendations Home with Assistance, Outpatient PT Transportation Needs at Discharge Private Vehicle
--- NOTE | 2022-05-05 09:41 | P.DS_ITS ---
History of Present Illness History of Present Illness Chief complaint: OPB Narrative: Ms. Yo is a 72W with PMH asthma, DM who presented for an elective shoulder repair. During surgery she was noted to have thick yellow secretions from the endotracheal tube. She was eventually extubated but was having respiratory difficulty, hypoxemia and placed on nasal cannula. She was tachycardic, EKG showed afib with RVR. She was given IV labetalol. Anesthesia team called requesting consult. When I see her she states prior to surgery she had no cough, shortness of breath, fever/chills. She has no history of cardiac disease, no history of afib. She currently denies feeling chest pain, palpitations, shortness of breath, dizziness, lightheadedness. Discharge Providers Provider Date of admission: 05/04/22 13:30 Discharge Date: 05/05/22 Primary care physician: Adilene Davis DO Consults: 05/03/22 06:00 Consult to Anesthesiology Routine Comment: Consulting Provider: Anesthesiologist Reason for consultation: Regional block for post operative pain control 05/03/22 19:34 Consult to Discharge Planning Routine Comment: 05/04/22 07:42 Consult to Occupational Therapy Evaluate & Treat Comment: s/p right reverse TSA Physician Instructions: Evaluate and treat Consult to Physical Therapy Evaluate & Treat Comment: s/p right reverse TSA Physician Instructions: Evaluate and Treat Discharge provider: Mason Hugo MD Summary Hospital Course Discharge Diagnosis: 1. Acute hypoxemic respiratory failure 2. Pneumonia 3. Atrial fibrillation with RVR 4. s/p R shoulder surgery 5. Asthma Hospital Course: Ms. Yo was admitted after having elective shoulder surgery and then having respiratory distress after surgery. She had a bried perior of tachycardia, pos sibly atrial fibrillation. She improved rapidly. Her xray was consistent with pneumonia and she initially required oxygen but then quickly improved. She was discharged with antibiotics. She should follow up with her PCP and consider Holter monitor. She should follow up with her surgeon. Exam Vital Signs (past 8 hours): Fraction of Inspired Oxygen 36 SaO2/FiO2 Ratio 272 Oxygen Delivery Method Room Air Oxygen Flow Rate 0 Narrative Exam Narrative: GEN: no acute distress PULM: clear bilaterally, no wheezes, rhonchi, rales CV: regular rate and rhythm ABD: soft, nontender, nondistended, no organomegaly EXT: warm and well perfused, no edema NEURO: awake, alert, oriented, no focal deficits Objective Labs Result Diagrams: 05/05/22 05:38 05/05/22 05:38 [facility] Medical History Cade's esophagus Breast cancer, right (1996) Bronchial asthma COPD, mild COVID-19 virus infection (10/2021) Depression Diabetes Easy bruisability Gout Hiatal hernia HLD (hyperlipidemia) HTN (hypertension) LYNSEY on CPAP Osteoarthritis Surgical History History of bilateral tubal ligation History of bladder surgery Hx of bilateral mastectomy (2008) Hx of cholecystectomy Hx of tonsillectomy Social History household members: none Smoking Status: Former smoker alcohol intake: former Discharge Plan Discharge Plan Patient Disposition: Home Provider Discharge Comment: Ms. Yo came in to the hospital for a shoulder surgery. Afterwards she developed a pneumonia and a fast heart rate. She was started on a medicine for her heart. She was given an antibiotic for pneumonia. She may need to wear a heart monitor for a few weeks, and should follow up with her PCP within a week to discuss this more. Discharge orders & Medications Prescriptions: New metoprolol tartrate 25 mg Tablet 12.5 mg PO BID Qty: 60 0RF levofloxacin 750 mg tablet 750 mg PO DAILY Qty: 3 0RF hydrocodone-acetaminophen 5-325 mg tablet 1 tab PO Q6H PRN (Reason: pain) Qty: 12 0RF Continued atorvastatin 40 mg Tablet 40 mg PO DAILY amlodipine 5 mg Tablet 5 mg PO DAILY allopurinol 300 mg Tablet 300 mg PO DAILY loratadine [Allerclear] 10 mg Tablet 10 mg PO DAILY Spiriva with HandiHaler 18 mcg Capsule, W/Inhalation Device 1 cap INHALATION DAILY Rx Instructions: puncture 1 cap using device; one dose = 2 inhalations esomeprazole magnesium 20 mg Tablet,Delayed Release (Dr/Ec) 20 mg PO DAILY Farxiga 5 mg Tablet 5 mg PO QAM Discontinued acetaminophen 500 mg Capsule 1,000 mg PO Q6H PRN (Reason: Pain) Follow up/Referrals: Cristian Choe MD [Physician] - As previously scheduled (Follow up with Dr Choe on May 15, 2022 @ 1:20 pm at [facility] office in [place].) Adilene Davis, [Primary Care Provider] - 3-5 Days (pneumonia after surgery, brief tachycardia possibly atrial fibrillation, recommend outpatient holter monitor and consider anticoagulation) Diet/Activity/Treatments Diet: Carb-consistent/Diabetic Activity: Sling to remain on for 6 weeks; wear while sleeping. No external rotation past neutral for 6 weeks. Okay to remove sling to shower. Cold/Heat Therapy: Ice to shoulder as needed for pain. Other treatments: Medications: -Ibuprofen 400mg 1 tablet every 4 hours as needed for pain/inflammation. Max 2,400mg per day. -Hydrocodone/acetaminophen 5/325 mg take 1 tablet every 4-6 hours as needed for moderate-severe pain (narcotic pain medication). -As needed medications: -Ducolax and /or MiraLax as needed for constipation from narcotic pain medications. -Pepcid AC as needed for stomach upset (usually from aspirin or ibuprofen). Dressing/Wound care: -Keep Aquacell dressing in place until postoperative follow-up office visit. -Okay to shower. Keep wound out of direct water stream. No soaking or submerging until all the scabs fall off (approximately 6 weeks). -Please call the office if dressing becomes wet, soiled, or saturated. Activities: -Maintain standard reverse total shoulder protocol: -OK to use your hand in front of your body, below shoulder level; ok to lift 1-2 lb for the first several weeks. Your activities will be advanced by physical therapy. -Continue with sling. -Continue with home exercises as directed by your physical therapist, including Codman/pendulum exercises. -Ice your incision as needed for pain/inflammation/swelling. Protect your skin with a folded pillowcase. Call the office if you have chest pain, shortness of breath, significant swelling that will not resolve with elevating, fever over 101?, significantly worsening pain, or are concerned you might need to go to the Emergency Room. [facility]: [phone] Skin/Wound/Dressing Care Report to your healthcare provider any signs of infection, such as:: chills, fever, night sweats, unusual drainage and unusual redness Visit Report/Discharge Packet Instructions: DI for Pneumonia -- Adult, DI for Tachycardia, How to Prevent Falls, DI for Shoulder Replacement Stand Alone Forms: Surgery Discharge Discharge Data Primary Care Provider: Adilene Davis Attending Provider: Cristian Choe
[2022-05-05] MEDS: ENOXAPARIN 40 MG/0.4 ML SYRINGE SUBCUT (09:45)
[2022-05-05] MEDS: HYDROCODONE/ACET 5/325 TABLET 1 TAB PO (09:46)
[2022-05-05] MEDS: allopurinoL 300 MG TABLET PO (09:50)
[2022-05-05] MEDS: ATORVASTATIN 20 MG TABLET 40 MG PO (09:50)
[2022-05-05] MEDS: AMLODIPINE 5 MG TABLET PO (09:50)
[2022-05-05] MEDS: DOCUSATE 100 MG CAPSULE PO (09:51)
[2022-05-05] MEDS: METOPROLOL IR 25 MG TABLET 12.5 MG PO (09:51)
[2022-05-05] MEDS: LORATADINE 10 MG TABLET PO (09:51)
--- NOTE | 2022-05-05 10:28 | CM.DPC ---
DCP Cont: Pt was discussed in rounds this morning and per MD, pt is ready for discharge today. Pt has no needs. PT eval done and cleared for home. Anticipate pt discharge home via friend POV. Jerica Molina RN/DCP
[2022-05-05 12:00] VITALS: BP 105/56; PULSE 89; RESP 16; TEMP 36.4; O2SAT 98
--- NOTE | 2022-05-05 14:08 | PT-IP ANOTE ---
Spoke with patient, she will be discharging later this afternoon, feels comfortable with all her information, does not feel that she requires and further inpatient physical therapy at this time.
--- NOTE | 2022-05-05 17:32 | PC.NURSE ---
Day shift: Paperwork signed and all questions answered. Pt has all personal belongings. Left unit via WC at approx 1725. THis check writer salesperson took her to car that her Son will drive her home in. Pain well controlled per JUL. Steady on her feet. Sputum culture sent today to lab. scripts given to Pt with d/c paperwork. Cms remains intact. Aquacel CDI. TOlerating sling. She also did very well with PT today.
== END 2022-05-05 17:35 | disposition home or self-care (01) ==
LOC: OR 05-07 07:05 → AC 05-07 07:05
PROVIDERS: Internal Medicine; Nurse Anesthetist, Certified Registered; Admitting Provider Orthopaedic Surgery; PCP Family Medicine; Referring Provider Orthopaedic Surgery; Visit Provider Orthopaedic Surgery
PROC: (CPT 23472; principal; 2022-05-03 12:45)
DX: M12.811 Other specific arthropathies, not elsewhere classified, right shoulder (principal); J96.01 Acute respiratory failure with hypoxia; J18.9 Pneumonia, unspecified organism; J45.909 Unspecified asthma, uncomplicated; I48.91 Unspecified atrial fibrillation; Z20.822 Contact with and (suspected) exposure to COVID-19; E11.9 Type 2 diabetes mellitus without complications; Z79.84 Long term (current) use of oral hypoglycemic drugs; M25.711 Osteophyte, right shoulder; M75.01 Adhesive capsulitis of right shoulder
CPT/HCPCS: 23472; 0241U; 36415; 36600; 71045; 73030; 80053; 82805; 82962; 84443; 85027; 87040; 87070; 87205; 93005; 94640; 97161; 97530; C1776; G0378; J0690; J1100; J1650; J2250; J2270; J2405; J2543; J2704; J3010